=== PATIENT | female | born 1995 | race Caucasian/White ===

== ENCOUNTER 2023-02-04 12:44 | Inpatient (IN) | payer BC ==
[2023-02-04] MEDS ORDERED: fentaNYL 50 mcg/mL 1 mL Vial SLOW IVP PRN (13:23)
[2023-02-04] MEDS ORDERED: Ibuprofen 800 MG TAB PO PRN (13:23)
[2023-02-04] MEDS ORDERED: Promethazine HCl 25 MG/ML VIAL IM PRN ×2 (13:23→14:58)
[2023-02-04] MEDS ORDERED: Lidocaine 1% (PF) 30 ML VIAL SC PRN (13:23)
[2023-02-04] MEDS ORDERED: Ondansetron PF 4 MG/2 ML Vial IVP PRN ×3 (13:23→21:07)
[2023-02-04] MEDS ORDERED: hydrALAZINE 20 MG/ML VIAL SLOW IVP PRN ×2 (13:23→21:07)
[2023-02-04] MEDS ORDERED: HYDROcodone/Acetaminophen 5/325 mg Tablet PO PRN ×4 (13:23→21:07)
[2023-02-04 13:25] VITALS: BMI 30.8
[2023-02-04] MEDS ORDERED: Lactated Ringer's 1,000 ML IV SCH (13:30)
[2023-02-04] MEDS ORDERED: Oxytocin 30 units/NS 500 ML 500 ML IV SCH ×3 (13:30→21:07)
[2023-02-04] MEDS ORDERED: Penicillin G Potassium 5 MILL.UNITS in Sodium Chloride 0.9% 100 ML IVPB SCH (13:30)
[2023-02-04] MEDS ORDERED: fentaNYL/Ropivacaine Epidural 100 ML ONE (14:50)
[2023-02-04 14:55] LABS: HBSAg Index 0.16 S/CO (0-0.99); Hep B Surf Ag - L&D Non-Reactive S/CO (NonReactive)
[2023-02-04 14:56] LABS: Syphilis Antibody Nonreactive (Nonreactive); Syphilis Antibody Index 0.03 S/CO (<1.00 Non-Reactive)
[2023-02-04 14:58] LABS: Hematocrit 33.4 % (34.9-44.5); Hemoglobin 11.4 g/dL (12.0-15.5); Mean Corpuscular HGB CONC 34.1 g/dL (32.0-36.0); Mean Corpuscular Hemoglobin 28.7 pg (27.0-33.0); Mean Corpuscular Volume 84.1 fl (81.6-98.3); Mean Platelet Volume 12.4 fl (7.4-10.4); Platelet Count 240 10x3/uL (150-450); RBC Distribution Width 12.8 % (11.5-14.5); Red Blood Cell (RBC) Count 3.97 10x6/uL (3.90-5.03); White Blood Cell (WBC) Count 10.2 10x3/uL (3.5-10.5)
[2023-02-04] MEDS ORDERED: ePHEDrine Sulfate 50 MG/10 ML VIAL SLOW IVP PRN (14:58)
[2023-02-04] MEDS ORDERED: diphenhydrAMINE 50 MG/ML VIAL IVP PRN (14:58)
[2023-02-04] MEDS ORDERED: Moisturizing Cream (Eucerin) 113 GM JAR TOP PRN (14:58)
[2023-02-04] MEDS ORDERED: Naloxone HCl 0.4 mg/ml Vial IVP PRN ×2 (14:58)
[2023-02-04] MEDS ORDERED: Acetaminophen 325 MG TAB PO PRN (14:58)
[2023-02-04] MEDS ORDERED: Lactated Ringer's 500 ML IV PRN (14:58)
[2023-02-04] MEDS ORDERED: fentaNYL 2 mcg/Ropivacaine 0.2% Epidural 100 ML CADD EPIDURAL SCH (15:00)
[2023-02-04] MEDS ORDERED: Communication Order-Pharmacy FS SCH (15:00)
[2023-02-04] MEDS ORDERED: Penicillin G 2.5 MILL.units 2.5 MILL.UNITS in Premix 1 BAG IVPB SCH (17:30)
[2023-02-04] MEDS ORDERED: fentaNYL 50 mcg/mL 1 mL Vial ONE (17:48)
[2023-02-04] MEDS ORDERED: Boostrix 0.5 ML (Tdap) VIAL (>/=7 yrs of age) IM ONE (21:07)
[2023-02-04] MEDS ORDERED: diphenhydrAMINE 25 MG CAP PO PRN (21:07)
[2023-02-04] MEDS ORDERED: Preparation H Ointment 28 GM TUBE PR PRN (21:07)
[2023-02-04] MEDS ORDERED: Bisacodyl 10 MG SUPP PR PRN (21:07)
[2023-02-04] MEDS ORDERED: Lanolin Ointment 7 GM TUBE TOP PRN (21:07)
[2023-02-04] MEDS ORDERED: Milk Of Magnesia 30 ML UDCUP PO PRN (21:07)
[2023-02-04] MEDS ORDERED: Benzocaine-Menthol 82.5 ML CAN TOP PRN (21:07)
[2023-02-04] MEDS: Docusate 100 MG CAP PO SCH (21:32)
[2023-02-04] MEDS: Ibuprofen 800 MG TAB PO SCH (21:32)
[2023-02-05] MEDS: Ibuprofen 800 MG TAB PO SCH ×3 (06:05→21:02)
[2023-02-05] MEDS: Ferrous Sulfate 325 MG TAB PO SCH ×2 (07:24→12:13)
[2023-02-05] MEDS: Prenatal Vitamin 1 TAB PO SCH (08:05)
[2023-02-05] MEDS: Docusate 100 MG CAP PO SCH ×2 (08:05→21:03)
[2023-02-05] MEDS ORDERED: Bupivacaine PF 0.5% 30 ML VIAL ONE (14:00)
[2023-02-05] MEDS ORDERED: Bupivacaine 0.25% HCL 30 ML VIAL ONE (14:00)
[2023-02-05 20:49] VITALS: TEMP 98.2
[2023-02-06] MEDS: Ibuprofen 800 MG TAB PO SCH (05:40)
[2023-02-06 08:01] VITALS: BP 116/69
[2023-02-06] MEDS: Prenatal Vitamin 1 TAB PO SCH (08:13)
[2023-02-06] MEDS: Docusate 100 MG CAP PO SCH (08:13)
[2023-02-06] MEDS: Ferrous Sulfate 325 MG TAB PO SCH (08:15)
== END 2023-02-06 12:10 | disposition home or self-care (01) | DRG 807 ==
LOC: CSHLD/OP 12:44 → CSHLD 13:23 → CSHPP 20:52
PROVIDERS: ADMIT Obstetrics & Gynecology; ATTEND Obstetrics & Gynecology
PROC: 10E0XZZ Delivery of Products of Conception, External Approach (ICD-10-PCS; principal; 2023-02-04)
DX: O99.824 Streptococcus B carrier state complicating childbirth (principal); Z37.0 Single live birth; Z3A.39 39 weeks gestation of pregnancy
CPT/HCPCS: 85027; 86780; 86850; 86900; 86901; 87340; J2540; J3010; J3490; J7120; S0020